=== PATIENT | male | born 1950 | race African-American/Black ===

== ENCOUNTER 2017-06-06 01:15 | Inpatient (IN) | payer SELFPAY ==
[~2017-06-06] VITALS: Ht 175.3 cm; Wt 126.1 kg
[2017-06-06 02:34] LABS: PROTHROMBIN TIME 10.6 sec (9.4-11.6)
[2017-06-06 02:44] LABS: HEMATOCRIT. 41.1 % (42.0-52.0); HEMOGLOBIN. 13.3 g/dL (14.0-18.0); MEAN CORPUSCULAR HEMOGLOBIN 29.9 pg (28.0-32.0); MEAN CORPUSCULAR VOLUME 92.3 fL (80.0-94.0); PLATELET 248 x1000/uL (130-400); RED BLOOD CELL COUNT 4.45 mill/uL (4.7-6.1); RED CELL DISTRIBUTION WIDTH 14.9 % (11.6-14.6)
[2017-06-06 02:45] LABS: CARBON DIOXIDE 31 mEq/L (21-32); CHLORIDE 103 mEq/L (98-107); TROPONIN I < 0.02 ng/mL (0.00-0.04)
[2017-06-06] MEDS ORDERED: AZITHROMYCIN 500 MG in DEXT 5% WATER 250 ML IV ONE (03:30)
[2017-06-06] MEDS ORDERED: ALBUTEROL (0.5%) 2.5MG/0.5ML NEB HHN ONE (03:30)
[2017-06-06] MEDS ORDERED: CEFTRIAXONE 1 G PREMIX 50 ML IV ONE (03:30)
[2017-06-06] MEDS ORDERED: AZITHROMYCIN 500 MG in SODIUM CHLORIDE 0.9% 250 ML IV NR (04:00)
[2017-06-06] MEDS ORDERED: HYDROCODONE/ACETAMINOPHEN 5/325MG TABLET PO PRN ×2 (06:15→11:45)
[2017-06-06] MEDS ORDERED: DIPHENHYDRAMINE 50MG/ML VIAL IV PRN (06:15)
[2017-06-06] MEDS ORDERED: LEVOFLOXACIN 500MG PREMIX 100 ML IV SCH ×2 (06:15→11:45)
[2017-06-06] MEDS ORDERED: ACETAMINOPHEN 325MG TABLET PO PRN ×2 (06:15→11:45)
[2017-06-06] MEDS ORDERED: KCL 10MEQ/50ML PREMIX 50 ML IV SCH ×2 (06:15→14:30)
[2017-06-06] MEDS ORDERED: MORPHINE SULFATE 2 MG/ML CPJ (NOT FOR IM USE) IV PRN (06:15)
[2017-06-06] MEDS ORDERED: CLONIDINE 0.1MG TABLET PO PRN ×2 (06:15→11:45)
[2017-06-06] MEDS ORDERED: IPRATROPIUM/ALBUTEROL 0.5-3(2.5)MG/3ML NEB INH PRN ×2 (06:15→11:45)
[2017-06-06] MEDS ORDERED: DOCUSATE SODIUM 100MG CAPSULE PO PRN (06:15)
[2017-06-06] MEDS ORDERED: GUAIFENESIN 200MG/10ML SUGAR FREE UDC PO PRN (06:15)
[2017-06-06] MEDS ORDERED: LORAZEPAM 2MG/ML CPJ IV PRN (06:15)
[2017-06-06] MEDS ORDERED: ONDANSETRON HCL 4MG/2ML VIAL IV PRN ×2 (06:15→11:45)
[2017-06-06 06:35] LABS: PLATELET ESTIMATE NORMAL
[2017-06-06 10:05] VITALS: BP 128/75
[2017-06-06] MEDS ORDERED: ENOXAPARIN 40MG/0.4ML SYR SUBCUT SCH (11:45)
[2017-06-06] MEDS ORDERED: METHYLPREDNISOLONE SOD SUCC 125 MG/2 ML VIAL IV SCH (11:45)
[2017-06-06] MEDS ORDERED: AMLODIPINE 10MG TABLET PO SCH (11:45)
[2017-06-06] MEDS ORDERED: LORAZEPAM 0.5MG TABLET PO PRN (11:45)
[2017-06-06] MEDS: METHYLPREDNISOLONE SOD SUCC 125 MG/2 ML VIAL IV SCH (12:42)
[2017-06-06] MEDS: LEVOFLOXACIN 500MG PREMIX 100 ML IV SCH (12:45)
[2017-06-06] MEDS: ASPIRIN 81MG EC TABLET PO SCH (13:56)
[2017-06-06] MEDS: AMLODIPINE 10MG TABLET PO SCH (13:56)
[2017-06-06] MEDS: ENOXAPARIN 40MG/0.4ML SYR SUBCUT SCH ×2 (13:57→21:25)
[2017-06-06] MEDS: IPRATROPIUM/ALBUTEROL 0.5-3(2.5)MG/3ML NEB INH SCH ×2 (14:19→20:41)
[2017-06-06 16:51] LABS: CREATINE KINASE 799 IU/L (39-308); TROPONIN I < 0.02 ng/mL (0.00-0.04)
[2017-06-06 16:58] VITALS: BP 125/73
[2017-06-06 20:14] VITALS: BP 124/81
[2017-06-07] VITALS: BP 109/52
[2017-06-07] MEDS: METHYLPREDNISOLONE SOD SUCC 125 MG/2 ML VIAL IV SCH ×3 (00:45→13:23)
[2017-06-07] MEDS: IPRATROPIUM/ALBUTEROL 0.5-3(2.5)MG/3ML NEB INH SCH ×3 (01:21→13:01)
[2017-06-07 01:27] LABS: CREATINE KINASE 670 IU/L (39-308); TROPONIN I < 0.02 ng/mL (0.00-0.04)
[2017-06-07 04:00] VITALS: BP 103/70
[2017-06-07 06:15] LABS: BASOPHILS % 0.4 % (0.0-2.0); HEMATOCRIT. 39.1 % (42.0-52.0); HEMOGLOBIN. 12.6 g/dL (14.0-18.0); LYMPHOCYTES % 17.9 % (20.0-50.0); MEAN CORPUSCULAR HEMOGLOBIN 29.8 pg (28.0-32.0); MEAN PLATELET VOLUME 8.3 fl (7.4-10.4); MONOCYTES % 4.3 % (2.0-8.0); NEUTROPHILS % 77.4 % (40.0-76.0); PLATELET 237 x1000/uL (130-400); RED BLOOD CELL COUNT 4.21 mill/uL (4.7-6.1); RED CELL DISTRIBUTION WIDTH 14.9 % (11.6-14.6)
[2017-06-07 08:00] VITALS: BP 110/58
[2017-06-07 08:28] LABS: CHLORIDE 100 mEq/L (98-107)
[2017-06-07] MEDS: ASPIRIN 81MG EC TABLET PO SCH (08:40)
[2017-06-07] MEDS: ENOXAPARIN 40MG/0.4ML SYR SUBCUT SCH (08:42)
[2017-06-07] MEDS: AMLODIPINE 10MG TABLET PO SCH (08:42)
[2017-06-07] MEDS ORDERED: ASPIRIN 81MG EC TABLET PO SCH (09:00)
[2017-06-07 09:18] LABS: CARBON DIOXIDE 28 mEq/L (21-32); HDL CHOLESTEROL 61 mg/dL (40-59); LDL CHOLESTEROL 89 mg/dL (5-100)
[2017-06-07 11:48] VITALS: BP 110/58
[2017-06-07 12:00] VITALS: BP 126/72
[2017-06-07] MEDS: LEVOFLOXACIN 500MG PREMIX 100 ML IV SCH (13:24)
== END 2017-06-07 16:45 | disposition home or self-care (01) | DRG 140 ==
LOC: ER 01:29 → 8WST 04:27 → SUPCPDRO 06:02 → ENRESERV 07:44
PROVIDERS: ADMIT Hospitalist; ATTEND Hospitalist
DX: J44.1 Chronic obstructive pulmonary disease with (acute) exacerbation (principal); E87.5 Hyperkalemia; I10 Essential (primary) hypertension; Z96.659 Presence of unspecified artificial knee joint; E87.6 Hypokalemia; Z87.891 Personal history of nicotine dependence
CPT/HCPCS: 36415; 71010; 80053; 80061; 82550; 83880; 84484; 85025; 85610; 87040; 93005; 93970; 94640; 96365; 96367; 99291; J0456; J0696; J1650; J1956; J2930; J3480; J7040; J7050; J7060; J7611; J7620